=== PATIENT | female | born 1990 | race Caucasian/White ===

== ENCOUNTER → 2018-02-13 10:12 | Outpatient (CLI) | payer MEDICARE ==
[2018-02-13 10:58] LABS: APPEARANCE CLOUDY (CLEAR); BILIRUBIN NEGATIVE (NEGATIVE); COLOR YELLOW (YELLOW); GLUCOSE NEGATIVE (NEGATIVE); KETONE NEGATIVE (NEGATIVE); NITRITE NEGATIVE (NEGATIVE); PROTEIN NEGATIVE (NEGATIVE); SPECIFIC GRAVITY 1.015 (1.005-1.020); UROBILINOGEN NORMAL (NORMAL)
== END | disposition home or self-care (01) ==
LOC: D.LDO 10:12
PROVIDERS: Obstetrics & Gynecology
DX: O26.893 Other specified pregnancy related conditions, third trimester (principal); Z3A.34 34 weeks gestation of pregnancy; R20.2 Paresthesia of skin

== ENCOUNTER 2018-03-14 07:27 | Inpatient (IN) | payer MEDICARE ==
[2018-03-14] VITALS (13 sets, daily range): BP systolic 84–127; BP diastolic 45–77; Ht 157.5 cm; Wt 85.3 kg
[~2018-03-14] VITALS: Ht 157.5 cm; Wt 85.3 kg
--- NOTE | ~2018-03-14 | CN ---
PATIENT NAME:LISETH BOWMAN MEDICAL RECORD: [id number] : 86 LOCATION:[id number] ADMIT DATE: 03/14/18 ACCOUNT: [id number] CONSULTING PHYSICIAN: CONCEPCION PERALES MD REFERRING PHYSICIAN: ISSA ODOM MD DATE OF CONSULTATION: 03/14/2018 HISTORY OF PRESENT ILLNESS: A 27-year-old female with a history of ongoing status post section this morning, feeling well, was noticed to have ectopic complexes on monitor. She does have PVCs. These are unifocal, appropriate physiologic compensatory pause. No high-grade ventricular rhythms noted via the right bundle branch morphology, it is highly asymptomatic. We are asked to see her concerning arrhythmias. MEDICATIONS: No home medications. ALLERGIES: None known. REVIEW OF SYSTEMS: Is normal except for a normal . PHYSICAL EXAMINATION: GENERAL: Pleasant female, appears stated age, in no acute distress. VITAL SIGNS: 111/60, pulse 80 and regular. HEENT: Normocephalic, atraumatic. NECK: No bruits noted. HEART: Regular, occasional extrasystole. LUNGS: Good air excursion. EXTREMITIES: Pulses are 2+ with no edema. DIAGNOSTIC DATA: A 12 ECG shows a normal ECG with occasional PVC. IMPRESSION: Physiologic premature ventricular contractions. These should lessen further out from delivery, no specific treatment is indicated at this point. Thank you for the consultation. TRANSINT:[id number] Voice Confirmation ID: [id number] DOCUMENT ID: [id number] CONCEPCION PERALES MD CC: [id number] DICTATION DATE: 03/14/18 1439 STOKER ERECTOR: 03/14/18 2321 ADM IN [id number] [place] [address]
--- NOTE | ~2018-03-14 | DS ---
PATIENT:LISETH BOWMAN :86 MEDICAL RECORD: [id number] DISCHARGE SUMMARY ADMISSION DATE: 03/14/18 DISCHARGE DATE: 03/16/18 DATE OF ADMISSION: 03/14/2018 DATE OF DISCHARGE: 03/16/2018 ADMISSION DIAGNOSES: 1. at 39 weeks gestation. 2. History of prior section. DISCHARGE DIAGNOSIS: Mother delivered at term. PROCEDURE: Repeat low transverse section. SURGEON AND ATTENDING: Issa Odom MD HISTORY OF PRESENT ILLNESS AND REASON FOR HOSPITALIZATION: See the H&P in the chart. SUMMARY OF HOSPITALIZATION: The patient was admitted to the hospital and underwent section without incident. At the day of procedure, she was tolerating a regular diet and voiding. At the time of discharge, she reports flatus, ambulating well with a clean incision. The patient has been instructed to follow up in the clinic in 2 weeks. Standard postoperative and precautions have been given. Contraception counseling has been reviewed. DISCHARGE MEDICATIONS: Include ibuprofen and Percocet. TRANSINT:[id number] Voice Confirmation ID: [id number] DOCUMENT ID: [id number] ISSA ODOM MD at 1321 CC: [id number] DICTATION DATE: 03/16/18 0922 DELIVERY TECH: 03/16/18 2348 DIS IN 03/16/18 [id number] [place] [address]
[2018-03-14 08:30] LABS: HEMATOCRIT 35.2 % (36.0-48.0); HEMOGLOBIN 12.2 g/dL (12-16); MCH 28.6 pg (26.0-34.0); MCHC 34.7 g/dL (31.0-37.0); MCV 82.6 fL (80.0-100.0); MEAN PLATELET VOLUME 10.3 fL (7.4-10.4); RBC 4.26 10x6/uL (4.00-5.40); RDW 15.6 % (11.5-14.5); WBC 11.4 10x3/uL (4.8-10.8)
[2018-03-14 08:50] LABS: UDS - AMPHET NEGATIVE QUAL (NEGATIVE); UDS - BARB NEGATIVE QUAL (NEGATIVE); UDS - BENZO NEGATIVE QUAL (NEGATIVE); UDS - COCAINE NEGATIVE QUAL (NEGATIVE); UDS - OPIATE NEGATIVE QUAL (NEGATIVE); UDS - PCP NEGATIVE QUAL (NEGATIVE); UDS - THC NEGATIVE QUAL (NEGATIVE)
[2018-03-15 04:47] VITALS: BP 99/55
[2018-03-15 05:52] LABS: HEMATOCRIT 30.6 % (36.0-48.0); HEMOGLOBIN 10.4 g/dL (12-16); MCH 28.3 pg (26.0-34.0); MCV 83.2 fL (80.0-100.0); MEAN PLATELET VOLUME 10.2 fL (7.4-10.4); RBC 3.68 10x6/uL (4.00-5.40); RDW 15.6 % (11.5-14.5); WBC 12.6 10x3/uL (4.8-10.8)
[2018-03-15 07:27] LABS: RAPID PLASMA REAGIN Non Reactive (Non Reactive)
[2018-03-15 07:52] VITALS: BP 97/64
[2018-03-15 07:53] VITALS: BP 97/64
[2018-03-15 15:50] VITALS: BP 104/65
[2018-03-15 17:52] VITALS: BP 107/62
[2018-03-15 19:41] VITALS: BP 110/58
[2018-03-16 04:11] VITALS: BP 104/60
[2018-03-16 07:32] VITALS: BP 102/59
[2018-03-16] MEDS ORDERED: IBUPROFEN800 MG PO (10:23)
[2018-03-16] MEDS ORDERED: PERCOCET 5-3251 TAB PO (10:24)
== END 2018-03-16 12:35 | disposition home or self-care (01) | DRG 788 ==
LOC: D.LD 07:27
PROVIDERS: Obstetrics & Gynecology
PROC: 10D00Z1 Extraction of Products of Conception, Low, Open Approach (ICD-10-PCS; principal; 2018-03-14 12:00)
DX: O34.211 Maternal care for low transverse scar from previous cesarean delivery (principal); Z3A.39 39 weeks gestation of pregnancy; Z37.0 Single live birth; O75.89 Other specified complications of labor and delivery; I49.3 Ventricular premature depolarization; Z87.891 Personal history of nicotine dependence

== ENCOUNTER 2019-02-12 06:10 | Day surgery (SDC) | payer MEDICARE, OTHER ==
[~2019-02-12] VITALS: Ht 154.9 cm; Wt 81.6 kg
[~2019-02-12 06:10] MED LIST: IBUPROFEN800 MG PO; PERCOCET 5-3251 TAB PO
[2019-02-12 10:44] LABS: HEMATOCRIT 44.2 % (36.0-48.0); HEMOGLOBIN 14.7 g/dL (12-16); MCH 27.3 pg (26.0-34.0); MCHC 33.3 g/dL (31.0-37.0); MCV 82.2 fL (80.0-100.0); MEAN PLATELET VOLUME 10.3 fL (7.4-10.4); RBC 5.38 10x6/uL (4.00-5.40); RDW 15.2 % (11.5-14.5); WBC 9.2 10x3/uL (4.8-10.8)
[2019-02-12 11:03] VITALS: BP 111/66; Ht 154.9 cm; Wt 81.6 kg
[2019-02-12 11:06] LABS: HCG URINE NEGATIVE (NEGATIVE)
[2019-02-12] MEDS ORDERED: OXYCODONE HCL5 M1 PO (15:31)
[2019-02-12] MEDS ORDERED: VISTARIL50 MG PO (15:31)
[2019-02-12] MEDS ORDERED: TORADOL10 MG PO (15:32)
[2019-02-12] MEDS ORDERED: ZOFRAN ODT4 MG/UDTAB PO (15:32)
--- NOTE | 2019-02-12 17:30 | NUR ---
8025 ASHISH PHONED INTO [facility] [address] FOR PT.
--- NOTE | 2019-02-13 07:59 | OP ---
PATIENT NAME: LISETH BOWMAN MEDICAL RECORD: [id number] :86 LOCATION:[facility] ADMISSION DATE: SURGEON: RAF KINGSTON DO DATE OF OPERATION: 02/12/2019 PROCEDURE PERFORMED: Left ACL reconstruction with allograft. PREOPERATIVE DIAGNOSIS: Left anterior cruciate ligament rupture or tear. POSTOPERATIVE DIAGNOSIS: Left anterior cruciate ligament rupture or tear. INDICATIONS: Ms. Bowman is a 28-year-old female who fell and hurt her knee. She was unsure what she did, but it did not feel right, got an MRI, which demonstrated an ACL complete tear. The patient was aware of the risks of doing surgery versus not and she chose to do surgery. She is aware of the risks including infection, bleeding, damage to nerves and vessels, need for further surgery, failure of graft, failure of fixation, continued pain and loss of range of motion of the knee, blood clots, and even and she signed the consent. SURGEON: Raf Kingston DO DESKTOP TECHNICIAN: Wilton Friend, certified surgical sales assistants and salespersons. DESCRIPTION OF PROCEDURE: The patient received a block by anesthesia in the preoperative area, was given 2 grams of Ancef. She was then taken to the operative suite, laid in supine position and given general anesthetic and LMA was placed. The left lower extremity was then prepped and draped in sterile fashion. Timeout was performed. Everyone was in agreeance with the correct side, site, patient and procedure. Once time out was performed, we then began by trying to harvest the hamstrings. Hamstrings were too thin to use for ACL graft. They would not have equal of 8 mm doubled over. Therefore, we chose using allograft anterior tibial tendon. The knee scope portion then began by establishing lateral portal with an 11-blade scalpel and trocar entered the knee joint. The knee was cleaned out and the old ACL fibers were removed at the site of the stump sites for the origin insertion. The suprapatellar region was inspected. No loose body was seen in the lateral gutter. Medial gutter was clear. The medial meniscus was probed and no tears were seen as well as at the lateral meniscus. The ACL was torn and it was in the midsubstance. This was cleaned out and the notch was cleaned. The graft was repaired by Wilton Friend, certified surgical sales assistants and salespersons, and then the femoral tunnel was drilled with the FlipCutter using a 9. The nitinol wire was then passed through that and locked, and sutured on the lateral side of the knee. The tibial tunnel was then reamed with a 9-mm tunnel lock. The pin was then put in and a pin was used as a marker and I went slightly posterior to the original pin and then reamed to a 9. The nitinol wire was then brought through the fat graft, was passed, and secured in place, button flipped on the lateral cortex of the femur, this was seen, and then the graft was advanced into the notch and up through the tunnel on the femur, and was in the approximately 25 mm. We then tensioned on the tibial side with a tunnel lock PEEK fixation, tensioning as we went and doing 2 rounds of cycles of 25 cycles of the knee each and then locked the tunnel lock into place by tapping it through. I then removed the device and the knee was checked, very solid. No motion whatsoever with anterior drawer or Rg's and then checked the graft through the scope and it was in good position and taut, and did not impinge with extension. The left lower extremity was exsanguinated with an Esmarch and tourniquet was inflated to 350 mmHg, was up for 85 minutes. OPERATIVE REPORT [id number] LISETH BOWMAN At the end of surgery, we then let down. Any bleeding was coagulated with a pickup and Bovie. The attempted graft site was then closed with 2-0 Vicryl inverted fashion, 4-0 Monocryl ran on the skin and then each of the poke holes, one from the medial portal, which had been established through using 18-gauge spinal needle and 11-blade scalpel during the knee scope portion as well as a lateral incision on the femur for the graft to be pulled through. These were all closed with 4-0 Monocryl in an inverted interrupted fashion and Steri-Strips were placed on the wounds and then she was dressed with Adaptic, 4 x 4s, ABD, Webril, Sunny wrap, BRUNILDA hose stocking up to the knee and placed in a hinged knee brace from 0-30. She was awakened and taken to recovery in stable condition. BLOOD LOSS: Approximately, 50 mL. COMPLICATIONS: None. TRANSINT:[id number] Voice Confirmation ID: [id number] DOCUMENT ID: [id number] RAF KINGSTON DO at 0759 CC: [id number] DICTATION DATE: 02/12/19 154 HEAD WRESTLING COACH: 02/12/19 1619 [facility] 02/12/19 [id number] [place] [id number]
== END 2019-02-12 18:00 | disposition home or self-care (01) ==
LOC: D.OPS 06:10
PROVIDERS: Anesthesiology; ATTEND Orthopaedic Surgery
DX: S83.512A Sprain of anterior cruciate ligament of left knee, initial encounter (principal); W19.XXXA Unspecified fall, initial encounter; M25.562 Pain in left knee